=== PATIENT | female | born 1950 | race Caucasian/White ===

== ENCOUNTER 2016-12-28 15:49 | Emergency (ER) | payer OTHER, MEDICARE ==
--- NOTE | 2016-12-28 16:08 | PDOC ---
History of Present Illness - General Chief Complaint: Hives Stated Complaint: HIVES AFTER IVIG Time Seen by Provider: 12/28/16 16:07 History Source: Patient Exam Limitations: No Limitations - History of Present Illness Initial Comments: 12/28/16 16:09 66y F hx of multiple medical problems including chronic lyme, autoimmune encephelopathy presents with rash. Pt notes she had IVIG for her autoimmune enceophalopathy on 12/06-12/10, she notes one or two small areas of rash immediately, but it gradualy worsened over the past week. The rash is painful. The pt denies any other complaints including fever, pain, cough, sob, abd pain, n/v, swelling. Pt notes the rash is primarily on her torso. Pt texted her doctor who recommended zantac and zertec. Pt also used benadryl at home without signficant improvement. pt dneis any swelling, wheezing., difficulty swallowing Past History - Past Medical History Allergies/Adverse Reactions: Allergies Allergy/AdvReac Type Severity Reaction Status Date / Time Artemisinin Analogues Allergy Severe Difficulty Verified 12/28/16 16:08 Breathing aloe Allergy Intermediate Rash Verified 12/28/16 16:17 chamomile flower Allergy Intermediate Verified 12/28/16 16:14 ciprofloxacin [From Cipro] Allergy Intermediate Verified 12/28/16 16:09 ciprofloxacin HCl Allergy Intermediate Verified 12/28/16 16:10 [From Cipro] ginseng Allergy Intermediate Verified 12/28/16 16:15 levofloxacin [From Levaquin] Allergy Intermediate Verified 12/28/16 16:11 melatonin Allergy Intermediate Verified 12/28/16 16:15 peanut Allergy Intermediate Verified 12/28/16 16:18 ragweed pollen Allergy Intermediate Verified 12/28/16 16:13 pyrimethamine [From Daraprim] Allergy Verified 12/28/16 16:09 atovaquone [From Mepron] AdvReac Intermediate Verified 12/28/16 16:11 hydroxychloroquine sulfate AdvReac Intermediate Verified 12/28/16 16:12 [From Plaquenil] leucovorin AdvReac Intermediate Nausea Verified 12/28/16 16:10 Home Medications: Ambulatory Orders Estradiol [Estrace] 1 mg PO DAILY 12/28/16 Lamotrigine 100 mg PO HS 12/28/16 Lamotrigine 200 mg PO DAILY 12/28/16 Methylprednisolone [Medrol Dose Kobe] 4 mg PO ASDIR #21 tablet 12/28/16 Minocycline HCl [Minocin] 50 mg PO BID 12/28/16 Nystatin 100,000 unit PO 12/28/16 Pyrazinamide - 500 mg PO BID 12/28/16 Rifampin 300 mg PO BID 12/28/16 COPD: No Seizures: Yes Other medical history: AUTO IMMUNE ENCEPHALOPATHY LYMES DISEASE OSTEOPOROSIS A/C SEPARATION - Surgical History Cholecystectomy: Yes - Suicide/Smoking/Psychosocial Hx Smoking History: Never smoked Have you smoked in the past 12 months: No Information on smoking cessation initiated: No Hx Alcohol Use: No Drug/Substance Use Hx: No Substance Use Type: None Review of Systems - Review of Systems Able to Perform ROS?: Yes Comments:: 12/28/16 16:14 Constitutional - no reported Fever, Chills, HEENT: no reported vision changes, sore throat Respiratory: no reported cough, sob, hemoptysis Cardiac: no reported chest pain, palpitations, light headedness, leg swelling Abd/GI: no reported abd pain, nausea, vomiting, blood per rectum, melena, diarrhea : no reported dysuria, frequency, discharge Musculskelatal - no reported back pain, joint swelling skin - +rash no reported bruising, erythema neurological: no reported headache, numbness, focal weakness, tingling, ataxia, hematologic: no reported anemia, easy bruising, easy bleeding *Physical Exam - Vital Signs Last Vital Signs Temp Pulse Resp BP Pulse Ox 97.8 F 75 16 124/60 99 12/28/16 15:50 12/28/16 15:50 12/28/16 15:50 12/28/16 15:50 12/28/16 15:50 - Physical Exam Comments: 12/28/16 16:14 GENERAL: The patient is awake, alert, and fully oriented, Nontoxic - in no acute distress. HEAD: Normocephalic, atraumatic. EYES: extraocular movements intact, sclera anicteric, conjunctiva clear. ENT: Normal voice, Moist mucous membranes. NECK: Normal range of motion, supple LUNGS: Breath sounds equal, clear to auscultation bilaterally. No wheezes, no rhonchi, no rales. HEART: Regular rate and rhythm, normal S1 and S2 without murmur, rub or gallop. ABDOMEN: Soft, nontender, normoactive bowel sounds. No guarding, no rebound. No CVA tenderness EXTREMITIES: Normal range of motion, no edema. NEUROLOGICAL: No facial assymetry, Normal speech, moving all 4 extremiities spontaneously and symmetricall SKIN: moribilliform rash on torso and proximal extremities (shoulder/thighs), spares mucus membranes and palms. Medical Decision Making - Medical Decision Making 12/28/16 16:21 suspect delayed drug reaction from IVIG attempted to reach dr. Hill - but she is out of the office and there is no [facility] waste transportation technician. will treat pt with medrol dose pack for her drug rash will have pt fu with dr hill on tuesday for reevaluation reutrn precautions were discussed *DC/Admit/Observation/Transfer Diagnosis at time of Disposition: Drug rash - Discharge Dispostion Disposition: HOME Condition at time of disposition: Stable Admit: No - Prescriptions Prescriptions: Methylprednisolone [Medrol Dose Kobe] 4 mg PO ASDIR #21 tablet - Referrals Referrals: Maite Hill [Non Staff, Medical] - - Patient Instructions Printed Discharge Instructions: DI for Rash Additional Instructions: I suspect your rash is a reaction from your IVIG. We will give you a course of steroids. Please follow up with dr. Hill on Tuesday. If you have any other concerns, or are not feeling well - please return to the emergency department immediately. Print Language: GAMBIAN - Post Discharge Activity
[2016-12-28 16:10] VITALS: BP 124/60; PULSE 75; TEMP 97.8; BMI 20.2
== END 2016-12-28 17:07 | disposition home or self-care (01) ==
LOC: FER 15:49
DX: L27.0 Generalized skin eruption due to drugs and medicaments taken internally (principal); T50.995A Adverse effect of other drugs, medicaments and biological substances, initial encounter; Y92.9 Unspecified place or not applicable; G93.49 Other encephalopathy; A69.20 Lyme disease, unspecified; M81.0 Age-related osteoporosis without current pathological fracture; Z88.1 Allergy status to other antibiotic agents; Z91.010 Allergy to peanuts; Z91.048 Other nonmedicinal substance allergy status; Z88.8 Allergy status to other drugs, medicaments and biological substances; G40.909 Epilepsy, unspecified, not intractable, without status epilepticus
CPT/HCPCS: 99281-25

== ENCOUNTER 2017-01-13 19:54 | Emergency (ER) | payer OTHER, MEDICARE ==
[2017-01-13 20:05] VITALS: BP 116/53; PULSE 63; TEMP 98.3; BMI 21.6
--- NOTE | 2017-01-13 20:54 | PDOC ---
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 Patient describes falling while walking on sidewalk 5 days ago; patient is unclear if she lost her balance or tripped. Patient states that she has occasional falling secondary to her encephalopathy. Patient hit the left side of her head when she fell but had no loss of consciousness. She subsequently had persistent headache with nausea over the next 4 days. She also had neck pain, primarily located over the left side of her neck. She denies any is other associated neurologic symptoms. She spoke to her neurologist today who suggested evaluation and CT scanning. Patient denies previous history of concussion. Past History - Past Medical History Allergies/Adverse Reactions: Allergies Allergy/AdvReac Type Severity Reaction Status Date / Time Artemisinin Analogues Allergy Severe Difficulty Verified 12/28/16 16:08 Breathing aloe Allergy Intermediate Rash Verified 12/28/16 16:17 chamomile flower Allergy Intermediate Verified 12/28/16 16:14 ciprofloxacin [From Cipro] Allergy Intermediate Verified 12/28/16 16:09 ciprofloxacin HCl Allergy Intermediate Verified 12/28/16 16:10 [From Cipro] ginseng Allergy Intermediate Verified 12/28/16 16:15 levofloxacin [From Levaquin] Allergy Intermediate Verified 12/28/16 16:11 melatonin Allergy Intermediate Verified 12/28/16 16:15 peanut Allergy Intermediate Verified 12/28/16 16:18 ragweed pollen Allergy Intermediate Verified 12/28/16 16:13 pyrimethamine [From Daraprim] Allergy Verified 12/28/16 16:09 atovaquone [From Mepron] AdvReac Intermediate Verified 12/28/16 16:11 hydroxychloroquine sulfate AdvReac Intermediate Verified 12/28/16 16:12 [From Plaquenil] leucovorin AdvReac Intermediate Nausea Verified 12/28/16 16:10 Home Medications: Ambulatory Orders Estradiol [Estrace] 1 mg PO DAILY 12/28/16 Lamotrigine 100 mg PO HS 12/28/16 Lamotrigine 200 mg PO DAILY 12/28/16 Minocycline HCl [Minocin] 50 mg PO BID 12/28/16 Nystatin 100,000 unit PO DAILY 12/28/16 Rifampin 300 mg PO BID 12/28/16 COPD: No Seizures: Yes Other medical history: CHRONIC LYME - Surgical History Cholecystectomy: Yes - Suicide/Smoking/Psychosocial Hx Smoking History: Never smoked Have you smoked in the past 12 months: No Hx Alcohol Use: No Drug/Substance Use Hx: No Substance Use Type: None Review of Systems - Review of Systems Able to Perform ROS?: Yes Comments:: 12 point review of systems is negative except for what is noted in the history of present illness *Physical Exam - Vital Signs Last Vital Signs Temp Pulse Resp BP Pulse Ox 98.3 F 63 16 116/53 98 01/13/17 20:03 01/13/17 20:03 01/13/17 20:03 01/13/17 20:03 01/13/17 20:03 - Physical Exam Comments: GENERAL: Adult female, alert and oriented 3, in no acute distress HEAD: Minimal edema/mild tenderness left parietal region; no Saunders sign/no hemotympanum EYES: PERRLA, EOMI, sclera anicteric, conjunctiva clear. Right periorbital hyperpigmentation (which patient states has been present for several years) ENT: Ears normal, nares patent, oropharynx clear without exudates. Moist mucous membranes. NECK: Normal range of motion, supple without lymphadenopathy, JVD, or masses. Mild tenderness to palpation left paracervical muscles LUNGS: Breath sounds equal, clear to auscultation bilaterally. No wheezes, and no crackles. HEART:Regular rate and rhythm, normal S1 and S2 without murmur, rub or gallop. ABDOMEN:.normal bowel sounds No guarding,tenderness or rebound.No masses No distention. EXTREMITIES: Normal range of motion, no edema. No clubbing or cyanosis. No erythema, or tenderness. NEUROLOGICAL: Cranial nerves II through XII grossly intact. Normal speech. No focal neurological deficits. MUSCULOSKELETAL: Back non-tender to palpation, no CVA tenderness SKIN: Warm, Dry, normal turgor, no rashes or lesions noted. Progress Note - Progress Note Progress Note: Noncontrast head CT and noncontrast cervical spine CT performed to evaluate for acute pathology. No evidence of acute intracranial pathology seen on CT. There is no definite interval change in comparison to prior CT dated 02/18/13 No fracture seen on cervical spine CT *DC/Admit/Observation/Transfer Diagnosis at time of Disposition: Concussion Qualifiers: Encounter type: initial encounter Loss of consciousness presence/duration: without LOC Qualified Code(s): S06.0X0A - Concussion without loss of consciousness, initial encounter - Discharge Dispostion Disposition: HOME Condition at time of disposition: Stable - Referrals Referrals: Maite Hill [Primary Care Provider] - - Patient Instructions Printed Discharge Instructions: Concussion Additional Instructions: Follow-up with your neurologist within the next 5-7 days Return to ER if you have more severe pain or develop vomiting - Post Discharge Activity
== END 2017-01-13 23:11 | disposition home or self-care (01) ==
LOC: FER 19:54
DX: S06.0X0A Concussion without loss of consciousness, initial encounter (principal); W18.39XA Other fall on same level, initial encounter; Y93.89 Activity, other specified; Y92.410 Unspecified street and highway as the place of occurrence of the external cause; G93.40 Encephalopathy, unspecified; A69.20 Lyme disease, unspecified
CPT/HCPCS: 70450-TC; 72125-TC; 99281-25

== ENCOUNTER 2017-11-11 07:58 | Emergency (ER) | payer OTHER, MEDICARE ==
--- NOTE | 2017-11-11 08:00 | PDOC ---
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 Complex migraine Pt reports that she was seated on a stool, approximately 3 feet from the ground She was focused on removing an eye lash from her eye when she fell backwards, landing on her bottom and then striking her head no LOC, no amnesia No seizure like activity no preceding chest pain, shortness of breath, palpitations, focal weakness or numbness Pt unsure how she got up but she did so by herself She has noted a headache since falling although she struck the back of her head, she notes pain in the right temporal area Pain is throbbing and sharp, rated 7/10, radiates throughout the occipital and right temporal region Pt also noted neck pain both midline and right paraspinal She denies new numbness, tingling, paresthesias, weakness Pt did not attempt to take any pain medications to help with her pain PMH: chronic Lyme disease and mild cognitive encephalopathy, osteoporosis, IBS PSH: Cholecystectomy '05, Varicose vein surgery '86, Cataract surgery '99 Meds: please see MAR ALL: please see MAR Social: Denies drug use FH: non contributory ROS: GENERAL/CONSTITUTIONAL: No: fever, chills, weakness HEAD, EYES, EARS, NOSE AND THROAT: Yes: right ear feels hot No: change in vision , discharge, sore throat, throat swelling. CARDIOVASCULAR: No: chest pain, lightheadedness, palpitations, syncope RESPIRATORY: No: cough, shortness of breath, wheezing, hemoptysis, stridor. GASTROINTESTINAL: No: nausea, vomiting, diarrhea, abdominal pain GENITOURINARY: No: dysuria, hematuria, frequency, urgency, flank pain. MUSCULOSKELETAL: Yes: neck pain No: back pain, joint pain, muscle swelling or pain SKIN: No: lesions, pallor, rash or easy bruising. NEUROLOGIC: Yes: headache No: vertigo, paresthesias, weakness ENDOCRINE: No: unexplained weight gain or loss HEMATOLOGIC/LYMPHATIC: No: anemia, easy bleeding, swelling nodes. PE: GENERAL: The patient is in no acute distress. HEAD: Normal with no signs of trauma. EYES: PERRLA, EOMI, sclera anicteric, conjunctiva clear. ENT: Ears normal, nares patent, oropharynx clear without exudates. Moist mucous membranes. no hemotympanum NECK: Normal range of motion, supple, (+) midline and right paraspinal tenderness, no limitations in range of motiont LUNGS: Breath sounds equal, clear to auscultation bilaterally. No wheezes, and no crackles. HEART:Regular rate and rhythm, normal S1 and S2 without murmur, rub or gallop. ABDOMEN: Soft, nontender, normoactive bowel sounds. No guarding, no rebound. No masses palpable. EXTREMITIES: Normal range of motion, no edema. NEUROLOGICAL: Cranial nerves II through XII grossly intact. Normal speech. No focal neurological deficits. MUSCULOSKELETAL: Back non-tender to palpation, no CVA tenderness SKIN: Warm, Dry, normal turgor, no rashes or lesions noted. 11/11/17 08:01 11/11/17 08:02 11/11/17 08:14 Past History - Past Medical History Allergies/Adverse Reactions: Allergies Allergy/AdvReac Type Severity Reaction Status Date / Time Artemisinin Analogues Allergy Severe Difficulty Verified 11/11/17 08:00 Breathing aloe Allergy Intermediate Rash Verified 11/11/17 08:00 chamomile flower Allergy Intermediate Verified 11/11/17 08:00 ciprofloxacin [From Cipro] Allergy Intermediate Verified 11/11/17 08:00 ciprofloxacin HCl Allergy Intermediate Verified 11/11/17 08:00 [From Cipro] ginseng Allergy Intermediate Verified 11/11/17 08:00 levofloxacin [From Levaquin] Allergy Intermediate Verified 11/11/17 08:00 melatonin Allergy Intermediate Verified 11/11/17 08:00 peanut Allergy Intermediate Verified 11/11/17 08:00 ragweed pollen Allergy Intermediate Verified 11/11/17 08:00 pyrimethamine [From Daraprim] Allergy Verified 11/11/17 08:00 atovaquone [From Mepron] AdvReac Intermediate Verified 11/11/17 08:00 hydroxychloroquine sulfate AdvReac Intermediate Verified 11/11/17 08:00 [From Plaquenil] leucovorin AdvReac Intermediate Nausea Verified 11/11/17 08:00 Home Medications: Ambulatory Orders Estradiol [Estrace] 0.375 mg PO DAILY 12/28/16 Lamotrigine 100 mg PO HS 12/28/16 Lamotrigine 200 mg PO DAILY 12/28/16 Fexofenadine HCl [Rebecca Allergy] 180 mg PO DAILY 11/11/17 Ranitidine HCl [Zantac] 150 mg PO BID 11/11/17 COPD: No Seizures: Yes - Surgical History Cholecystectomy: Yes - Suicide/Smoking/Psychosocial Hx Smoking History: Never smoked Have you smoked in the past 12 months: No Hx Alcohol Use: No Drug/Substance Use Hx: No Substance Use Type: None Medical Decision Making - Medical Decision Making 11/11/17 08:56 CT head : no acute intracranial hemorrhage, or mass CT c spine: no fracture or dislocation, (+) degenerative changes pt did not want to take Tylenol for pain Pt discharged to home pt given copies of results Pt given copy of disc Will ask pt to take tylenol and for pain Follow up with Neuro *DC/Admit/Observation/Transfer Diagnosis at time of Disposition: Head trauma Qualifiers: Encounter type: initial encounter Qualified Code(s): S09.90XA - Unspecified injury of head, initial encounter - Discharge Dispostion Disposition: HOME Condition at time of disposition: Stable Decision to Admit order: No - Referrals Referrals: Yung Martinez MD [Staff Physician] - Rick Duron MD [Staff Physician] - Annette Tam MD [Staff Physician] - Fede Jeronimo MD [Staff Physician] - - Patient Instructions Printed Discharge Instructions: DI for Closed Head Injury Additional Instructions: Ms Archer Thank you for coming in to the ER today Please take tylenol if needed for pain Please follow up with Neurology Return to the ER for ANY other concerns or complaints Be cautions while walking - Post Discharge Activity
[2017-11-11 08:03] VITALS: BP 142/66; PULSE 67; TEMP 98.5; BMI 20.9
== END 2017-11-11 09:25 | disposition home or self-care (01) ==
LOC: FER 07:58
DX: S09.90XA Unspecified injury of head, initial encounter (principal); Z91.010 Allergy to peanuts; Z88.8 Allergy status to other drugs, medicaments and biological substances; Z88.1 Allergy status to other antibiotic agents; W07.XXXA Fall from chair, initial encounter; Y93.89 Activity, other specified; Y92.89 Other specified places as the place of occurrence of the external cause
CPT/HCPCS: 70450-TC; 72125-TC; 99282-25

== ENCOUNTER 2018-05-13 20:09 | Emergency (ER) | payer OTHER, MEDICARE ==
[2018-05-13 20:15] VITALS: BP 156/72; PULSE 63; TEMP 97.9; BMI 22.4
--- NOTE | 2018-05-13 21:09 | PDOC ---
History of Present Illness - General History Source: Patient Exam Limitations: No Limitations - History of Present Illness Initial Comments: 05/13/18 21:25 The patient is a 67 YOF with a PMH of chronic lyme disease and babesiosis, osteoporosis, pancreatic cysts, and seizures who presents to the ER with a migraine and nausea for the past 24 hours. Patient states that she received IVIG gammagard on 05/10/18 and 05/11/18. Patient has a history of migraines and states her migraine today feels similar. Patient notes that home remedies typically resolve her migraines, but has not provided any relief this time. Patient states she has been eating and drinking normally at home. Patient was concerned about the possible side effects of the IVIG prompting her to come to the ER for further evaluation. The patient denies chest pain, shortness of breath, and dizziness. Denies fever, chills, vomit, diarrhea and constipation. Denies dysuria, frequency, urgency and hematuria. Allergies: cipro, levaquin Surgeries: Varicose vein surgery, cholecystectomy, cataracts Social: No reported alcohol, drug or cigarette use. <Felisa Sparrow - Last Filed: 05/13/18 21:39> <Lizzeth Langston - Last Filed: 05/14/18 03:43> - General Chief Complaint: Nausea Stated Complaint: MALAISE Time Seen by Provider: 05/13/18 20:39 Past History <Felisa Sparrow - Last Filed: 05/13/18 21:39> - Past Medical History CVA: Yes (TIA,complex migraines) COPD: No GI Disorders: Yes (pancreatic cysts) Seizures: Yes Other medical history: CHRONIC LYME/BABIASIS - Surgical History Cholecystectomy: Yes - Suicide/Smoking/Psychosocial Hx Smoking History: Unknown if ever smoked Have you smoked in the past 12 months: No Information on smoking cessation initiated: No Hx Alcohol Use: No Drug/Substance Use Hx: No Substance Use Type: None <Lizzeth Langston - Last Filed: 05/14/18 03:43> - Past Medical History Allergies/Adverse Reactions: Allergies Allergy/AdvReac Type Severity Reaction Status Date / Time Artemisinin Analogues Allergy Severe Difficulty Verified 11/11/17 08:00 Breathing aloe Allergy Intermediate Rash Verified 11/11/17 08:00 chamomile flower Allergy Intermediate Verified 11/11/17 08:00 ciprofloxacin [From Cipro] Allergy Intermediate Verified 11/11/17 08:00 ciprofloxacin HCl Allergy Intermediate Verified 11/11/17 08:00 [From Cipro] ginseng Allergy Intermediate Verified 11/11/17 08:00 levofloxacin [From Levaquin] Allergy Intermediate Verified 11/11/17 08:00 melatonin Allergy Intermediate Verified 11/11/17 08:00 peanut Allergy Intermediate Verified 11/11/17 08:00 ragweed pollen Allergy Intermediate Verified 11/11/17 08:00 pyrimethamine [From Daraprim] Allergy Verified 11/11/17 08:00 atovaquone [From Mepron] AdvReac Intermediate Verified 11/11/17 08:00 hydroxychloroquine sulfate AdvReac Intermediate Verified 11/11/17 08:00 [From Plaquenil] leucovorin AdvReac Intermediate Nausea Verified 11/11/17 08:00 Home Medications: Ambulatory Orders Estradiol [Estrace] 0.375 mg PO DAILY 12/28/16 Lamotrigine 100 mg PO HS 12/28/16 Lamotrigine 200 mg PO DAILY 12/28/16 Azithromycin 250 mg PO BID 05/13/18 Glutathione 05/13/18 Nystatin Oral Suspension - [Nystatin Oral Susp 742596 Units/5 ML -] 5 ml PO BID 05/13/18 Pen G Lyndon/Pen G Procaine [Bicillin C-R 1.2 Million Unit] 1,200,000 unit IM WEEKLY 05/13/18 Progesterone Micronized 05/13/18 Valacyclovir HCl [Valtrex] 1,000 mg PO BID 05/13/18 Review of Systems - Review of Systems Able to Perform ROS?: Yes Comments:: 05/13/18 21:34 ADULT ROS GENERAL/CONSTITUTIONAL: No fever or chills. No weakness. HEAD, EYES, EARS, NOSE AND THROAT: No change in vision. No ear pain or discharge. No sore throat. CARDIOVASCULAR: No chest pain or shortness of breath. RESPIRATORY: No cough, wheezing, or hemoptysis. GASTROINTESTINAL: No vomiting, diarrhea or constipation. (+) nausea GENITOURINARY: No dysuria, frequency, or change in urination. MUSCULOSKELETAL: No joint or muscle swelling or pain. No neck or back pain. SKIN: No rash NEUROLOGIC: No vertigo, loss of consciousness, or change in strength/sensation. (+) migraine. ENDOCRINE: No increased thirst. No abnormal weight change. HEMATOLOGIC/LYMPHATIC: No anemia, easy bleeding, or history of blood clots. ALLERGIC/IMMUNOLOGIC: No hives or skin allergy. <Felisa Sparrow - Last Filed: 05/13/18 21:39> *Physical Exam - Vital Signs Last Vital Signs Temp Pulse Resp BP Pulse Ox 97.9 F 63 16 156/72 99 05/13/18 20:11 05/13/18 20:11 05/13/18 20:11 05/13/18 20:11 05/13/18 20:11 - Physical Exam Comments: 05/13/18 21:35 ADULT EXAM GENERAL: Awake, alert, and fully oriented, in no acute distress HEAD: No signs of trauma EYES: PERRLA, EOMI, sclera anicteric, conjunctiva clear ENT: Auricles normal inspection, hearing grossly normal, nares patent, oropharynx clear without exudates. (+) Dry mucus membranes. NECK: Normal ROM, supple, no lymphadenopathy, JVD, or masses LUNGS: Breath sounds equal, clear to auscultation bilaterally. No wheezes, and no crackles HEART: Regular rate and rhythm, normal S1 and S2, no murmurs, rubs or gallops ABDOMEN: Soft, nontender, normoactive bowel sounds. No guarding, no rebound. No masses EXTREMITIES: Normal range of motion, no edema. No clubbing or cyanosis. No cords, erythema, or tenderness NEUROLOGICAL: Cranial nerves II through XII grossly intact. Normal speech, normal gait SKIN: Warm, Dry, normal turgor, no rashes or lesions noted. <Felisa Sparrow - Last Filed: 05/13/18 21:39> - Vital Signs Last Vital Signs Temp Pulse Resp BP Pulse Ox 97.9 F 63 16 156/72 99 05/13/18 20:11 05/13/18 20:11 05/13/18 20:11 05/13/18 20:11 05/13/18 20:11 <Lizzeth Langston - Last Filed: 05/14/18 03:43> ED Treatment Course - LABORATORY CBC & Chemistry Diagram: 05/13/18 21:35 05/13/18 21:35 <Lizzeth Langston - Last Filed: 05/14/18 03:43> Medical Decision Making - Medical Decision Making Documentation has been prepared under my direction and personally reviewed by me in its entirety. I attest that this documented accurately reflects all work, treatment, procedures and medical decision making performed by me. As noted above, this 67-year-old woman with a history of chronic Lyme/babesia encephalitis, seizures, pancreatic cysts received IVIG treatments on 2 consecutive days earlier this week presents with migraine headache and nausea for the last 48 hours. Patient has had history of migraine headaches in the past; her usual homeopathic/natural medicine treatments for her migraine has not been affected for this episode. No other unusual characteristics of this particular headache. Patient is worried that the IVIG treatments have made her dehydrated since she was counseled that this is a particularly common side effect of the treatment. Patient states that she has been drinking plenty of water to counteract the possible dehydration. Exam as noted Patient is given a liter normal saline IV as well as acetaminophen 1 g IV and Zofran 4 mg IV CBC and chemistry profile results notable for sodium of 125 mmol/liter. Remainder of laboratory evaluation is essentially normal. Patient feels markedly improved after IV hydration along with acetaminophen/ Zofran IV. Although the patient has no previous history of hyponatremia, she does admit to drinking large amounts of water over the last 48 hours. Her headache/nausea is essentially resolved and her sensorium has always been clear. Patient is very reliable and understands that fluid restriction is very important over the next few days. She will markedly decrease the intake of fluids and at the same time be in touch with her doctors for follow-up planning. If she redevelops headache or experiences grogginess/lethargy, she should return to the ER. <Lizzeth Langston - Last Filed: 05/14/18 03:43> *DC/Admit/Observation/Transfer - Attestations Scribe Attestion: 05/13/18 21:35 Documentation prepared by Felisa Sparrow, acting as medical doctor nuclear medicine for Lizzeth Langston MD. <Felisa Sparrow - Last Filed: 05/13/18 21:39> <Lizzeth Langston - Last Filed: 05/14/18 03:43> Diagnosis at time of Disposition: Hyponatremia - Discharge Dispostion Disposition: HOME Condition at time of disposition: Stable - Patient Instructions Printed Discharge Instructions: DI for Hyponatremia Additional Instructions: Decrease water intake as discussed Follow-up with your doctor within the next 48 hours Return to ER immediately if you have severe, persistent headache or develop lethargy/grogginess/disorientation
[2018-05-13] MEDS ORDERED: SODIUM CHLORIDE 1,000 ML IV STA (21:26)
[2018-05-13] MEDS ORDERED: ACETAMINOPHEN 1000 MG/100 ML VIAL (NON FORMULARY) IVPB ONE (21:26)
[2018-05-13] MEDS ORDERED: ACETAMINOPHEN INJECTION 100 ML IVPB ONE (21:28)
[2018-05-13 21:49] LABS: BASO % 0.9 % (0-2.0); EOS % 1.3 % (0-4.5); HEMOGLOBIN 11.7 GM/dl (10.7-15.3); LYMPH % 24.9 % (8-40); MCH 31.4 pg (25.7-33.7); MCHC 34.5 g/dl (32.0-36.0); MEAN CELL VOLUME 90.9 fl (80-96); MEAN PLT VOLUME 7.5 fl (7.5-11.1); MONO % 11.3 % (3.8-10.2); NEUT % 61.6 % (42.8-82.8); PLATELET COUNT 257 K/MM3 (134-434); RBC 3.73 M/mm3 (3.60-5.2); RDW 13.3 % (11.6-15.6)
[2018-05-13 22:07] LABS: ALBUMIN 3.6 g/dl (3.4-5.0); ALK PHOS 51 U/L (45-117); ANION GAP 5 MMOL/L (8-16); BILIRUBIN,TOTAL 1.4 mg/dl (0.2-1); BLOOD UREA NITROGEN 14 mg/dl (7-18); CALCIUM 9.2 mg/dl (8.5-10); CHLORIDE 95 mmol/L (98-107); CO2 25 mmol/L (21-32); CREATININE 0.9 mg/dl (0.55-1.3); GLUCOSE,RANDOM 102 mg/dl (74-106); POTASSIUM 4.3 mmol/L (3.5-5.1); SGOT/AST 24 U/L (15-37); SGPT/ALT 17 U/L (13-61); SODIUM 125 mmol/L (136-145); TOT PROT 8.7 g/dl (6.4-8.2)
[2018-05-13] MEDS ORDERED: ONDANSETRON 4 MG/2 ML VIAL IVPB ONE (22:46)
[2018-05-13] MEDS ORDERED: ONDANSETRON 4 MG/2 ML VIAL ONE (22:48)
== END 2018-05-13 23:21 | disposition home or self-care (01) ==
LOC: FER 20:09
PROC: 3E033NZ Introduction of Analgesics, Hypnotics, Sedatives into Peripheral Vein, Percutaneous Approach (ICD-10-PCS; principal; 2018-05-13)
PROC: 3E033GC Introduction of Other Therapeutic Substance into Peripheral Vein, Percutaneous Approach (ICD-10-PCS; 2018-05-13)
PROC: 3E0337Z Introduction of Electrolytic and Water Balance Substance into Peripheral Vein, Percutaneous Approach (ICD-10-PCS; 2018-05-13)
DX: E87.1 Hypo-osmolality and hyponatremia (principal); A69.20 Lyme disease, unspecified; G04.81 Other encephalitis and encephalomyelitis; R56.9 Unspecified convulsions
CPT/HCPCS: 36415; 80053; 85025; 99283-25; J0131; J7030